=== PATIENT | female | born 1970 | race Caucasian/White ===

== ENCOUNTER 2017-10-08 07:28 | Emergency (ER) | payer OTHER ==
[2017-10-08] MEDS ORDERED: ACETAMINOPHEN 325 MG TAB ONE (08:12)
== END 2017-10-08 10:26 | disposition home or self-care (01) ==
LOC: EDH 07:28
DX: S93.491A Sprain of other ligament of right ankle, initial encounter (principal); X50.0XXA Overexertion from strenuous movement or load, initial encounter; Y93.89 Activity, other specified; Y92.89 Other specified places as the place of occurrence of the external cause; Y99.8 Other external cause status
CPT/HCPCS: 73610

== ENCOUNTER 2017-11-11 15:14 | Emergency (ER) | payer OTHER ==
[2017-11-11] MEDS ORDERED: ACETAMINOPHEN EXTRA STRENGTH 500 MG TABLET ONE (16:08)
== END 2017-11-11 17:01 | disposition home or self-care (01) ==
LOC: EDH 15:14
DX: M79.661 Pain in right lower leg (principal); F41.9 Anxiety disorder, unspecified; Z88.6 Allergy status to analgesic agent
CPT/HCPCS: 73590; 93971

== ENCOUNTER 2019-01-05 07:09 | Emergency (ER) | payer OTHER ==
[2019-01-05] MEDS ORDERED: SODIUM CHLORIDE 0.9% 1000ML 1,000 ML IV ONE (07:58)
[2019-01-05] MEDS ORDERED: KETOROLAC TROMETHAMINE 30MG/ML ONE (07:58)
[2019-01-05 08:02] LABS: BASOPHILS % (AUTO) 0.4 % (0.0-5.0); HEMATOCRIT 38.7 % (36-48); LYMPHOCYTES % (AUTO) 12.7 % (21.0-51.0); MEAN CORPUSCULAR HEMOGLOBIN 28.7 pg (27.0-33.0); MEAN CORPUSCULAR HGB CONC 33.3 g/dL (32.0-36.0); MONOCYTES % (AUTO) 12.1 % (3.0-13.0); NEUTROPHILS % (AUTO) 71.8 % (40.0-77.0); PLATELET COUNT (AUTO) 210 K/uL (130-400); RED CELL DISTRIBUTION WIDTH 15.9 % (11.0-15.5); WHITE BLOOD COUNT (AUTO) 7.7 K/uL (4.8-10.8)
[2019-01-05 08:14] LABS: CREATININE 0.7 mg/dL (0.5-1.5); POTASSIUM 4.3 mmol/L (3.5-5.1)
== END 2019-01-05 09:40 | disposition home or self-care (01) ==
LOC: EDH 07:09
DX: M79.604 Pain in right leg (principal); F41.9 Anxiety disorder, unspecified; L93.0 Discoid lupus erythematosus; Z88.6 Allergy status to analgesic agent
CPT/HCPCS: 36415; 80048; 85025; 93971; 96374; 99285; J1885; J7030

== ENCOUNTER 2019-07-01 17:37 | Emergency (ER) | payer OTHER ==
[2019-07-01] MEDS ORDERED: ACETAMINOPHEN 325 MG TAB ONE (18:01)
== END 2019-07-01 18:30 | disposition home or self-care (01) ==
LOC: EDH 17:37
DX: M79.604 Pain in right leg (principal); F41.9 Anxiety disorder, unspecified; L93.0 Discoid lupus erythematosus; Z88.8 Allergy status to other drugs, medicaments and biological substances; Z79.899 Other long term (current) drug therapy

== ENCOUNTER 2020-07-07 14:25 | Emergency (ER) | payer MEDICARE, OTHER ==
[2020-07-07] MEDS ORDERED: 0.9%NACL 50ML 50 ML IV ONE (15:05)
[2020-07-07] MEDS ORDERED: 0.9%NACL 1000ML 1,000 ML IV ONE (15:05)
[2020-07-07 15:10] LABS: BASOPHILS % (AUTO) 0.1 % (0.0-5.0); EOSINOPHILS % (AUTO) 0.1 % (0.0-8.0); HEMATOCRIT 36.5 % (36-48); LYMPHOCYTES % (AUTO) 5.9 % (21.0-51.0); MEAN CORPUSCULAR HEMOGLOBIN 29.8 pg (27.0-33.0); MEAN CORPUSCULAR HGB CONC 35.1 g/dL (32.0-36.0); MEAN CORPUSCULAR VOLUME 84.9 fL (79-99); MONOCYTES % (AUTO) 11.3 % (3.0-13.0); NEUTROPHILS % (AUTO) 82.3 % (40.0-77.0); PLATELET COUNT (AUTO) 187 K/uL (130-400); RED CELL DISTRIBUTION WIDTH 14.7 % (11.0-15.5); WHITE BLOOD COUNT (AUTO) 11.7 K/uL (4.8-10.8)
[2020-07-07 15:23] LABS: INR 1.44 (0.85-1.15); PROTHROMBIN TIME 14.9 SEC (9.6-11.6)
[2020-07-07 15:24] LABS: CREATININE 0.9 mg/dL (0.5-1.5); PARTIAL THROMBOPLASTIN TIME 26.1 SEC (26.3-35.5); POTASSIUM 3.5 mmol/L (3.5-5.1)
[2020-07-07 15:28] LABS: ALBUMIN 3.9 g/dL (3.5-5.0); TOTAL PROTEIN, SERUM 6.6 g/dL (6.0-8.3)
[2020-07-07] MEDS ORDERED: IOHEXOL-350 75 ML VIAL IV ONE (18:21)
== END 2020-07-07 20:09 | disposition home or self-care (01) ==
LOC: EDH 14:25
DX: R16.0 Hepatomegaly, not elsewhere classified (principal); R22.1 Localized swelling, mass and lump, neck; R63.4 Abnormal weight loss; R11.2 Nausea with vomiting, unspecified; Z20.822 Contact with and (suspected) exposure to COVID-19; F41.9 Anxiety disorder, unspecified; Z88.5 Allergy status to narcotic agent
CPT/HCPCS: 36415; 71045; 74177; 80053; 83605; 83690; 84484; 85025; 85610; 85730; 87040 ×2; 87426; 87804 ×2; 87880; 96361; 96374; 99285; J7030; Q9967; U0003

== ENCOUNTER → 2020-08-30 | Outpatient (CLI) | payer MEDICARE, OTHER | END | disposition home or self-care (01) | LOC: EDSTATUS 08:00 → RAH 08:30 | PROVIDERS: ATTEND Family Medicine | DX: D37.6 Neoplasm of uncertain behavior of liver, gallbladder and bile ducts (principal); K76.9 Liver disease, unspecified; K80.20 Calculus of gallbladder without cholecystitis without obstruction | CPT/HCPCS: 76700 ==

== ENCOUNTER → 2020-11-03 | Outpatient (CLI) | payer OTHER ==
[2020-11-03 15:58] LABS: CREATININE 0.9 mg/dL (0.5-1.5)
== END | disposition home or self-care (01) ==
LOC: LAB 14:42
PROVIDERS: ATTEND Internal Medicine Gastroenterology
DX: R10.10 Upper abdominal pain, unspecified (principal); R11.2 Nausea with vomiting, unspecified
CPT/HCPCS: 36415; 82565; 84520

== ENCOUNTER → 2020-11-09 | Outpatient (CLI) | payer OTHER ==
[~2020-11-09] MED LIST: IOHEXOL-350 75 ML VIAL IV ONE
== END | disposition home or self-care (01) ==
LOC: RAH 11-07 08:05
PROVIDERS: ATTEND Internal Medicine Gastroenterology
DX: R10.10 Upper abdominal pain, unspecified (principal); R11.2 Nausea with vomiting, unspecified; R63.4 Abnormal weight loss
CPT/HCPCS: 74178; Q9967

== ENCOUNTER → 2022-05-21 | Emergency (ER) | payer OTHER ==
[~2022-05-21] VITALS: Ht 149.9 cm; Wt 43.5 kg
[~2022-05-21] MED LIST changes: -IOHEXOL-350 75 ML VIAL IV ONE; +METH4TAB3 PO
[2022-05-21 18:55] VITALS: BP 111/34
== END | disposition left against medical advice (07) ==
LOC: EDH 18:55
DX: R07.89 Other chest pain (principal); Z53.21 Procedure and treatment not carried out due to patient leaving prior to being seen by health care provider
CPT/HCPCS: 71045; 93005

== ENCOUNTER 2022-05-22 11:29 | Emergency (ER) | payer OTHER ==
[2022-05-22 13:14] LABS: BASOPHILS % (AUTO) 0.2 % (0.0-5.0); HEMATOCRIT 34.6 % (36-48); LYMPHOCYTES % (AUTO) 15.2 % (21.0-51.0); MEAN CORPUSCULAR HEMOGLOBIN 29.1 pg (27.0-33.0); MEAN CORPUSCULAR HGB CONC 33.5 g/dL (32.0-36.0); MEAN CORPUSCULAR VOLUME 86.7 fL (79-99); NEUTROPHILS % (AUTO) 73.4 % (40.0-77.0); PLATELET COUNT (AUTO) 180 K/uL (130-400); RED BLOOD CELL COUNT(AUTO) 3.99 MIL/uL (4.00-5.50); RED CELL DISTRIBUTION WIDTH 12.1 % (11.0-15.5); WHITE BLOOD COUNT (AUTO) 6.1 K/uL (4.8-10.8)
[2022-05-22 13:37] LABS: CREATININE 0.9 mg/dL (0.5-1.5); POTASSIUM 3.9 mmol/L (3.5-5.1); TOTAL PROTEIN, SERUM 7.4 g/dL (6.0-8.3)
[2022-05-22] MEDS ORDERED: METH4TAB3 PO (14:45)
[2022-05-22 14:55] VITALS: BP 123/78
== END 2022-05-22 14:51 | disposition home or self-care (01) ==
LOC: EDH 11:29
DX: M94.0 Chondrocostal junction syndrome [Tietze] (principal); Z88.5 Allergy status to narcotic agent
CPT/HCPCS: 36415; 80053; 84484; 85025; 93005